=== PATIENT | male | born 1995 | race Caucasian/White ===

== ENCOUNTER 2023-11-18 10:09 | Day surgery (SDC) | payer OTHER ==
[~2023-11-18] VITALS: Ht 182.9 cm; Wt 144.7 kg
[~2023-11-18 10:09] MED LIST: BACL1TAB8 PO; BENZ1TAB5 PO; CLOM50TA28 PO; CLON-412 PO; CLON0.5T2 PO; DILUENT IV ONE; FLUO20CA22 PO; GABA600T4 PO; HYDR50TA70 PO; INVE234I; LITH150C PO; LITH300T2 PO; METO1TAB33 PO; MOXIFLOXACIN HCL IV ONE; OXCA300T14 PO; PANT40TA29 PO; PRAV40TA2 PO
[2023-11-18] MEDS ORDERED: LR 1,000 ML IV SCH ×2 (11:05→14:25)
[2023-11-18] MEDS ORDERED: CHLORHEXIDINE GLUCONATE 0.12 % 15ML UDC (PERIDEX ORAL RINSE) As Ordered ONE ×2 (11:42→12:29)
[2023-11-18] MEDS ORDERED: LIDOCAINE 2% W/ EPINEPHRINE 1.7 ML DENTAL INJ As Ordered ONE (11:42)
[2023-11-18] MEDS ORDERED: ROCURONIUM BROMIDE 50MG/5ML VIAL As Ordered ONE (12:27)
[2023-11-18] MEDS ORDERED: SUGAMMADEX SODIUM 500 MG/5 ML VIAL (BRIDION) As Ordered ONE (12:27)
[2023-11-18] MEDS ORDERED: ONDANSETRON 4MG 2ML VIAL As Ordered ONE (12:27)
[2023-11-18] MEDS ORDERED: propofoL 200 MG/20 ML VIAL As Ordered ONE (12:27)
[2023-11-18] MEDS ORDERED: fentaNYL 100 MCG/2 ML INJECTION As Ordered ONE ×2 (12:27→12:45)
[2023-11-18] MEDS ORDERED: KETOROLAC 60MG 2ML VIAL As Ordered ONE (12:27)
[2023-11-18] MEDS ORDERED: LIDOCAINE 2% 100MG/5ML SDV (FOR ANES.) As Ordered ONE (12:27)
[2023-11-18] MEDS ORDERED: MIDAZOLAM INJ 2MG/2ML VIAL As Ordered ONE (12:27)
[2023-11-18] MEDS ORDERED: dexmedeTOMIDine (4MCG/ML)200MCG/50ML BTL (PRECEDEX) As Ordered ONE (12:27)
[2023-11-18] MEDS ORDERED: METOCLOPRAMIDE INJ 10MG/2ML VIAL As Ordered ONE (12:27)
[2023-11-18] MEDS ORDERED: LIDOCAINE 5% OINT 30GM TUBE As Ordered ONE (12:28)
[2023-11-18] MEDS ORDERED: ACETAMINOPHEN 1000MG 100ML IV BAG As Ordered ONE (12:43)
[2023-11-18] MEDS ORDERED: ePHEDrine SULFATE 25 MG/5 ML(5MG/ML) SYRINGE As Ordered ONE (13:41)
[2023-11-18] MEDS ORDERED: ONDANSETRON 4MG 2ML VIAL IV PRN (14:25)
[2023-11-18] MEDS ORDERED: oxyCODONE 5MG TAB PO PRN (14:25)
[2023-11-18] MEDS ORDERED: fentaNYL 100 MCG/2 ML INJECTION IV PRN (14:25)
[2023-11-18] MEDS ORDERED: HYDROMORPHONE HCL 0.5 MG/ 0.5 ML SYRINGE IV PRN (14:25)
[2023-11-18] MEDS ORDERED: DESFLURANE 240 ML INHALANT As Ordered ONE (14:26)
[2023-11-18 15:40] VITALS: BP 114/77; TEMP 98.9; O2SAT 95
== END 2023-11-18 16:12 | disposition home or self-care (01) ==
LOC: M SDC 10:09
PROVIDERS: ATTEND Dentist
DX: K02.9 Dental caries, unspecified (principal); F31.9 Bipolar disorder, unspecified; I10 Essential (primary) hypertension; E78.00 Pure hypercholesterolemia, unspecified; E06.3 Autoimmune thyroiditis; Z87.891 Personal history of nicotine dependence; Z88.0 Allergy status to penicillin; Z79.899 Other long term (current) drug therapy
CPT/HCPCS: 88300; C9290; D7140; D7210; D9223; J0131; J1100; J1885; J2250; J2280; J2405; J2765; J3010